=== PATIENT | female | born 1935 | race Caucasian/White ===

== ENCOUNTER 2016-05-30 19:21 | Emergency (ER) | payer MEDICARE ==
--- NOTE | 2016-05-30 20:41 | RAD ---
Name: KOBI SANCHEZ Exam: Two-view chest Comparison: 03/19/2014 Clinical history: Cough and chest pain Findings: 2 views of the chest are submitted. Heart is nonenlarged. Mediastinum and hilar structures are normal. COPD with scarring is present. There is no failure, infiltrate, pleural effusion or pneumothorax. Impression: COPD
== END 2016-05-30 20:45 | disposition home or self-care (01) ==
LOC: ED 19:21
DX: J06.9 Acute upper respiratory infection, unspecified (principal); J44.9 Chronic obstructive pulmonary disease, unspecified; I10 Essential (primary) hypertension; F17.210 Nicotine dependence, cigarettes, uncomplicated